=== PATIENT | male | born 1990 | race Caucasian/White ===

== ENCOUNTER 2022-01-25 19:13 | Observation (INO) ==
[2022-01-25] MEDS ORDERED: PIPERACILLIN/TAZOBACTAM 4.5 GM/120 ML BAG IV ONE (19:48)
[2022-01-25 19:52] LABS: Basophils # (auto) 0.07 K/uL (0-0.2); Basophils % (auto) 0.4 %; Eosinophils # (auto) 0.45 K/uL (0-0.50); Eosinophils % (auto) 2.8 %; Hematocrit (blood only) 48.2 % (40.1-51.0); Hemoglobin 16.1 g/dl (14.0-18.0); Immature Granulocytes # (auto) 0.06 K/uL (0.00-0.02); Immature Granulocytes % (auto) 0.4 %; Lymphocytes # (auto) 0.87 K/uL (1.2-3.4); Lymphocytes % (auto) 5.4 %; Mean Corpuscular Hemoglobin 29.1 pg (25.0-34.0); Mean Corpuscular Hgb Conc 33.4 g/dL (32.0-36.0); Mean Platelet Volume 9.9 fL (9.4-12.4); Neutrophils # (auto) 13.85 K/uL (1.4-6.5); Platelet Count 217 K/uL (130-400); RDW Coefficient of Variation 11.9 % (11.5-14.5); RDW Standard Deviation 37.9 fL (36.4-46.3); Red Blood Count 5.54 M/uL (4.63-6.08)
[2022-01-25] MEDS ORDERED: PIPERACILLIN/TAZOBACTAM 4.5 GM/120ML D5W IV ONE (19:57)
[2022-01-25] MEDS ORDERED: PANTOprazole 80 MG in DEXTROSE 5% 100 ML IV STA (19:57)
[2022-01-25 20:05] LABS: Partial Thromboplastin Ratio 0.9; Prothrombin Time 10.9 Seconds (9.0-12.0)
[2022-01-25 20:19] LABS: Albumin Globulin Ratio 1.8 (0.9-2); Albumin Level 4.8 gm/dl (3.4-5.0); BUN Creatinine Ratio 8.7 (10-20); Bilirubin,Total 1.5 mg/dl (0.2-1.0); Calcium 9.8 mg/dl (8.5-10.1); Creatinine Clr Calc Pharmacy 124.5 ml/min; Est GFR (African American) 111.9 ml/min; Est GFR (Non-African American) 96.6 ml/min; Globulin 2.7 gm/dl (2.5-4.0); Potassium 3.8 mmol/L (3.5-5.1); Total Protein 7.5 gm/dl (6.0-8.3); Troponin I High Sensitivity 4.4 pg/ml (0-20)
[2022-01-25 20:21] LABS: iSTAT Ionized Calcium 1.17 mmol/l (1.12-1.32); iSTAT Potassium 3.7 mmol/L (3.3-5.0)
[2022-01-25] MEDS ORDERED: OPTIRAY 300 500mL IV ONE (20:22)
[2022-01-25] MEDS ORDERED: SODIUM CHLORIDE 0.9% 1000ML 1,000 ML IV SCH (20:30)
--- NOTE | 2022-01-25 20:37 | CT Scan Report ---
CHEST CT WITH CONTRAST CT DOSE: 323.74 mGy.cm HISTORY: Acute chest and abdominal pain with fever w/oral contrast ro esophogeal perf TECHNIQUE: Multiaxial CT images of the chest were performed following the IV administration of 94 cc of Optiray. Oral contrast was also utilized. A dose lowering technique was utilized adhering to the principles of ALARA. COMPARISON: Chest CT 04/20/2012 FINDINGS: Unremarkable thyroid. Residual thymic tissue of the anterior mediastinum. No pathologically enlarged lymph nodes. The heart is normal in size without pericardial effusion. Unremarkable thoraci c aorta and pulmonary artery. No pneumothorax, pleural effusion or overt pulmonary edema. Patchy nodu lar groundglass and consolidative opacities noted within left lung, predominantly within the left juany g base. Subtle right upper lobe opacities include a 7 mm groundglass nodule of the right upper lobe 1 33. The central airways are patent. Study is degraded by respiratory motion artifact. No pneumatosis or pneumoperitoneum. Oral contrast is noted throughout the esophagus without evidence of extravasation or perforation. No acute process of the imaged upper abdomen. Unremarkable soft tiss ues. No acute fracture. IMPRESSION: 1. Patchy nodular groundglass and consolidative opacities, most pronounced within the left lung base are suggestive of pneumonia. 2. No evidence of esophageal perforation. 3. No pleural effusion. ACT 112: Negative or not required by law. Electronically signed by: Eddie Mckoy M.D. 01/25/2022 8:35 PM
--- NOTE | 2022-01-25 20:55 | Consultation ---
Date of Consultation January 25, 2022 History of Present Illness Reason for Consultation: chest pain after dilation History of Present Illness 31 yo M with eosinophilic esophagitis with narrow caliber esophagus s/p dilation to 12 mm earlier this afternoon. Pt with several deep rents in esophagus post dilation. He was sent to ER with complaint of CP and temp of 100.2 at home. At present, he reports CP with dry swallow. PE: Appears comfortable, does not appear to be in distress. I ask him to dry swallow several times, and he winces slightly with this. HEENT: OC clear, no crepitus Resp: CTA to oh Labs reviewed: WBC 16, o.w normal labs CT reviewed with radiologist, mild aspiration, no extrav of oral contrast, no mediastinal fluid. Esophagus appears unremarkable. A/P: CP post dilation in pt with EE - Cont PPI gtt overnight, cont zosyn overnight. - Plan for esophagram tomorrow with gastrograffin contrast. If again no extra of contrast, ok for d/c home tomorrow with PPI gtt, full iquids and Augmentin for aspiration. Allergies Allergy/AdvReac Type Severity Reaction Status Date / Time No Known Allergies Allergy Mild Verified 11/27/14 13:31 Home Medications Medication Instructions Recorded Confirmed Type OMEPRAZOLE (PRILOSEC) 20 mg PO DAILY #0 caps 11/27/14 History Patient History Social History Smoking Status: Never smoker Preferred Language: Romanian Feels Safe at Home: Yes Results & Data ([facility]) Vital Signs (Past 12 Hours) Vital Signs Temp Pulse Resp BP Pulse Ox O2 Del Method 01/25/22 19:51 95 Room Air 01/25/22 19:22 37.6 C H 95 H 18 131/77 96
[2022-01-25] MEDS ORDERED: HYDROmorphone INJ 0.5 MG/0.5 ML SYR IV STA (22:33)
[2022-01-25] MEDS ORDERED: HYDROmorphone INJ 0.5 MG/0.5 ML SYR IV PRN (23:49)
[2022-01-25] MEDS ORDERED: NITROGLYCERIN SL 0.4 MG/TAB TAB SL PRN (23:49)
[2022-01-25] MEDS ORDERED: ONDANSETRON INJ 2 MG/ML 2 ML VIAL IV PRN (23:49)
[2022-01-25] MEDS ORDERED: ACETAMINOPHEN 325 MG TAB PO PRN (23:49)
--- NOTE | 2022-01-26 00:56 | History and Physical Report ---
DATE OF ADMISSION: 01/25/2022. CHIEF COMPLAINT: Chest pain post esophageal dilatation. HISTORY OF PRESENT ILLNESS: This is a 31-year-old male with past medical history significant for intestinal disaccharidase deficiency, dysphagia, eosinophilic esophagitis, GERD. He is status post EGD and found to have narrow- caliber esophagus, status post dilatation to 12 mm earlier this afternoon. The patient seems to have several deep rents in the esophagus post-dilatation as per the GI notes. He was discharged home.Saying after going home and after waking up from sleep, he had a temperature of 100 degrees and also having chest pain and could not able to swallow, so he came back. He had imaging studies done. CT chest shows aspiration pneumonitis and also some esophagitis and no evidence of esophageal perforation. No pleural effusion. GI saw the patient and ordered to observe overnight, treat with Protonix drip and Zosyn, and plan for esophagram with Gastrografin contrast in the a.m. Currently, the patient complains of chest pain, a lot of pain all through his esophagus and is requesting pain medications. Denies any nausea or vomiting. No shortness of breath, no cough, no headache, no blurred visions, no earache, no runny nose, no sore throat. Some abdominal discomfort. Normal bowel and bladder movements. Resting comfortably, hemodynamically stable. ALLERGIES: No known drug allergies. PAST MEDICAL HISTORY: As mentioned above. PAST SURGICAL HISTORY: Circumcision, EGDs multiple, EGD with biopsies, repair of right elbow fracture. MEDICATIONS: Omeprazole 20 mg daily. FAMILY HISTORY: Significant for cousin with GERD, mother has kidney stones. SOCIAL HISTORY: Single, former smoker. Alcohol on the weekends. No drug use. REVIEW OF SYSTEMS: As per HPI. Rest of the review of systems is negative. PHYSICAL EXAMINATION: GENERAL: The patient is of moderate build, not in acute distress. VITAL SIGNS: Temperature 37.6, pulse 95, respiratory rate 18, blood pressure 131/77, oxygen 94% on room air. HEENT: Pupils equal, round and reactive to light. Oral mucosa moist. NECK: No JVD, no neck masses. CARDIOVASCULAR: S1 and S2 heard. Regular rate and rhythm. No murmur, no gallop. RESPIRATORY: Normal AP diameter. No accessory muscle use. No wheezing, no crackles. ABDOMEN: Soft, bowel sounds present, nontender, no distention. CENTRAL NERVOUS SYSTEM: Cranial nerves II-XII grossly intact, nonfocal. EXTREMITIES: No edema, no erythema. LABORATORY DATA: WBC 16, hemoglobin 16.1, hematocrit 48.2, platelets 217. PT 10.9, INR 1, APTT 25. Sodium 139, potassium 3.8, chloride 102, CO2 29, BUN 9, creatinine 1.04, serum glucose 69, calcium 9.8, total bilirubin 1.5, AST 18, ALT 18, alkaline phosphatase 71. Troponin I high sensitivity 4.4. Chest CT: Patchy nodular ground-glass and consolidative opacities, most prominent in the left lung base suggestive of pneumonia. No evidence of esophageal perforation. No pleural effusion. EKG: Sinus rhythm and sinus arrhythmia with short CA at a rate of 85. ASSESSMENT AND PLAN: This is a 31-year-old male who presents with chest pain post esophageal dilatation. 1. Eosinophilic esophagitis, status post EGD and narrow caliber esophagus, status post dilation up to 12 mm. Complaints of chest pain and some fever concerning aspiration pneumonitis. No perforation. Plan for PPI drip overnight, IV zosyn.Esophagram tomorrow with Gastrografin contrast. We will keep him n.p.o. Gastrointestinal consulted. Pain control, antiemetics, IV fluids. 2. Aspiration pneumonitis. Starting him on Zosyn, plan to discharge on Augmentin. 3. Deep venous thrombosis prophylaxis: Sequential compression devices. DISPOSITION: Admit to [facility]. PT/OT prior to discharge. Social service to help with discharge planning. Job ID: [id number] [facility]
--- NOTE | 2022-01-26 00:59 | Emergency Department Note ---
History of Present Illness General Chief complaint: Chest Pain Stated complaint: CHEST PAIN, FEVER Time Seen by Provider: 01/25/22 19:50 History of Present Illness Provider complaint: Chest pain Onset (ago): day(s) 1 Location: chest Radiation: non-radiation Severity: moderate Pain Consistency: + constant Maximum Pain Intensity: 5 Current Pain Intensity: 5 Quality: + burning and + stabbing Relieved By: + none Exacerbated By: + none Associated symptoms: + chest pain; no cough, no fever/chills, no headaches, no malaise, no nausea/vomiting or no shortness of breath 31-year-old male presents to the emergency department with chest pain. Patient had an endoscopy done today by Dr. Nelson and after procedure he was sharp ving chest pain and fevers. He called Dr. Nelson who referred him to the emergency department. Dr. Nelson is at the bedside and is recommending we perform a CT scan to rule out perforation. Home Medications Medication Instructions Recorded Confirmed Type OMEPRAZOLE (PRILOSEC) 20 mg PO DAILY #0 caps 11/27/14 History Allergies Allergy/AdvReac Type Severity Reaction Status Date / Time No Known Allergies Allergy Mild Verified 11/27/14 13:31 Past Med/Surg History Medical History Eosinophilic esophagitis No pertinent family history Surgical History No pertinent past surgical history Social History Smoking Status: Never smoker Second Hand Exposure: Yes (mom occasionally); Do You Dip or Chew Tobacco: No; Tobacco Cessation Education Requested by Patient: No Hx Alcohol Use: Yes Alcohol type: beer and hard liquor Hx Substance Use: No Preferred Language: Malian Communication Ability: Effective 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 Beliefs That Will Affect Care: None Current Living Situation: Alone Other Information That Helps Us Care for You: No Feels Safe at Home: Yes Safety Concerns: Feels Safe At This Time Assistive Devices: Glasses Review of Systems A total of 10 systems reviewed and were otherwise negative Physical Exam Vital Signs Vital Signs - 24 hr 01/25/22 19:22 01/25/22 19:51 01/25/22 21:14 Temperature 37.6 C H Temperature Source Temporal Artery Scan Pulse Rate 95 H Pulse Rate [Apical] 72 Respiratory Rate 18 20 Respiratory Effort / Characteristics Non-Labored Spontaneous Respiratory Depth Normal Respiratory Pattern Regular Blood Pressure 131/77 Blood Pressure [Right Arm] 128/79 Blood Pressure Mean 95 Blood Pressure Mean [Right Arm] 95 Blood Pressure Position [Right Arm] Sitting Pulse Oximetry 96 95 95 Oxygen Delivery Method Room Air Room Air Sepsis Recent Fever Within 48 Hours Yes Sepsis New/Unexplained Change in Mental Status No Sepsis Action Taken by Nursing No Action Required 01/25/22 21:14 Temperature Temperature Source Pulse Rate Pulse Rate [Apical] Respiratory Rate Respiratory Effort / Characteristics Respiratory Depth Respiratory Pattern Blood Pressure Blood Pressure [Right Arm] Blood Pressure Mean Blood Pressure Mean [Right Arm] Blood Pressure Position [Right Arm] Pulse Oximetry 97 Oxygen Delivery Method Room Air Sepsis Recent Fever Within 48 Hours Sepsis New/Unexplained Change in Mental Status Sepsis Action Taken by Nursing Physical Exam GENERAL: He is oriented to person, place, and time. He appears well-developed and well-nourished. He does not appear distressed. HENT: Exam performed. - Head: Normocephalic and atraumatic. - Right Ear: External ear normal. No mastoid tenderness. - Left Ear: External ear normal. No mastoid tenderness. - Mouth/Throat: The oropharynx is clear and moist. No trismus in the jaw. No dental abscesses or uvula swelling. No oropharyngeal exudate or tonsillar abscesses. EYES: Conjunctivae and EOM are normal. Pupils are equal, round, and reactive to light. Right eye exhibits no discharge. Left eye exhibits no discharge. No scleral icterus. NECK: Normal range of motion. Neck supple. No JVD present. No spinous process tenderness present. No carotid bruit present. No rigidity. No tracheal deviation and normal range of motion present. No Brudzinski's sign and no Kernig's sign noted. CV: Normal rate, regular rhythm, normal heart sounds and intact distal pulses. There is no peripheral edema. Palpable radial pulses bue. PULM/CHEST: Effort normal and breath sounds normal. No respiratory distress. No stridor. He has no wheezes. He has no rales. - Chest Wall: He exhibits no tenderness. ABD: The abdomen is soft. Bowel sounds are normal. He has no distension. No mass is present. There is no tenderness. There is no rebound, no guarding, no Shannon's sign and no tenderness at McBurney's point. Rovsig negative. MUSC/SKEL: Normal range of motion. There is no peripheral edema, tenderness or deformity. LYMPH: No cervical adenopathy. NEURO: He is alert and oriented to person, place, and time. He has normal strength. No cranial nerve deficit or sensory deficit. Coordination and gait normal. GCS eye subscore is 4. GCS verbal subscore is 5. GCS motor subscore is 6. Cerebellar tests wnl. SKIN: Skin is warm and dry. He is not diaphoretic. PSYCH: He has a normal mood and affect. Behavior is normal. Judgment and thought content normal. Course Course 1950: The patient was evaluated in room B8. A complete history and physical exam was performed Cardiac monitoring: An order was placed for continuous cardiac monitoring. The monitor shows a rate of 80 with sinus rhythm Administered Medications Discontinued Medications Piperacillin Sod/Tazobactam Sod (Zosyn) 4.5 gm in 120 mls @ 240 mls/hr IV NOW ONE Stop: 01/25/22 20:17 Last Infusion: 01/25/22 20:32 Dose: 0 mls/hr Documented By: Admin: 01/25/22 19:59 Dose: 240 mls/hr Documented By: JESS Pantoprazole Sodium 80 mg/ (Dextrose) 100 mls @ 400 mls/hr IV ONE STA Stop: 01/25/22 20:11 Last Infusion: 01/25/22 21:00 Dose: 0 mls/hr Documented By: Admin: 01/25/22 20:37 Dose: 400 mls/hr Documented By: JESS Sodium Chloride (Nss 1000ml) 1,000 mls @ 150 mls/hr IV .Q6H40M AKIALH Stop: 02/24/22 20:29 Last Infusion: 01/26/22 00:11 Dose: 0 mls/hr Documented By: Admin: 01/25/22 21:09 Dose: 150 mls/hr Documented By: JESS Ioversol (Optiray 300 500ml) 94 ml IV ONCE ONE Stop: 01/25/22 20:23 Last Admin: 01/25/22 20:23 Dose: 94 ml Documented By: ANKIT Piperacillin Sod/Tazobactam Sod (Piperacillin/Tazobactam 4.5 Gm/120ml D5w) Confirm Administered Dose 4.5 gm IV .STK-MED ONE Stop: 01/25/22 19:58 Last Admin: 01/25/22 20:12 Dose: Not Given Documented By: JESS Medical Decision Making Laboratory Data Result diagrams: 01/25/22 19:30 01/25/22 19:30 Lab Results 01/25/22 01/25/22 01/25/22 Range/Units 19:30 19:30 19:30 WBC 16.10 H (4.8-10.8) K/ul RBC 5.54 (4.63-6.08) M/uL Hgb 16.1 (14.0-18.0) g/dl POC Hgb (14.0-18.0) g/dl Hct 48.2 (40.1-51.0) % POC Hct (42-52) % MCV 87.0 (80.0-100.0) fL MCH 29.1 (25.0-34.0) pg MCHC 33.4 (32.0-36.0) g/dL RDW Std Deviation 37.9 (36.4-46.3) fL RDW Coeff of Nikolay 11.9 (11.5-14.5) % Plt Count 217 (130-400) K/uL MPV 9.9 (9.4-12.4) fL Immature Gran % (Auto) 0.4 % Neut % (Auto) 86.0 % Lymph % (Auto) 5.4 % Bay % (Auto) 5.0 % Eos % (Auto) 2.8 % Baso % (Auto) 0.4 % Neut # (Auto) 13.85 H (1.4-6.5) K/uL Lymph # (Auto) 0.87 L (1.2-3.4) K/uL Bay # (Auto) 0.80 (0.24-0.82) K/uL Eos # (Auto) 0.45 (0-0.50) K/uL Baso # (Auto) 0.07 (0-0.2) K/uL Immature Gran # (Auto) 0.06 H (0.00-0.02) K/uL PT 10.9 (9.0-12.0) Seconds INR 1.0 (0.9-1.1) APTT 25.0 (21.0-31.0) Seconds PTT Ratio 0.9 POC Sodium (135-144) mmol/L Sodium 139 (136-145) mmol/L POC Potassium (3.3-5.0) mmol/L Potassium 3.8 (3.5-5.1) mmol/L POC Chloride (101-112) mmol/L Chloride 102 (98-107) mmol/L Carbon Dioxide 29 (21-32) mmol/L POC Total CO2 (24-31) mmol/L Anion Gap 8 (3-11) POC Anion Gap (16-25) mmol/L POC BUN (7-18) mg/dl BUN 9 (6-23) mg/dl Creatinine 1.04 (0.6-1.4) mg/dl POC Creatinine (0.6-1.3) mg/dl Est Cr Clr Drug Dosing 124.5 ml/min Est GFR ( Amer) 111.9 ml/min Est GFR (Non-Af Amer) 96.6 ml/min BUN/Creatinine Ratio 8.7 L (10-20) Glucose 69 L (70-99(Fasting)) mg/dl POC Glucose (other) (70-99) mg/dl Calcium 9.8 (8.5-10.1) mg/dl POC Ioniz Calcium Krunal (1.12-1.32) mmol/l Total Bilirubin 1.5 H (0.2-1.0) mg/dl AST 18 (13-39) U/L ALT 18 (7-52) U/L Alkaline Phosphatase 71 (34-104) U/L Troponin I High Sens 4.4 (0-20) pg/ml Total Protein 7.5 (6.0-8.3) gm/dl Albumin 4.8 (3.4-5.0) gm/dl Globulin 2.7 (2.5-4.0) gm/dl Albumin/Globulin Ratio 1.8 (0.9-2) SARS-CoV-2, RNA, NAAT (NEGATIVE) 01/25/22 01/25/22 Range/Units 20:08 21:40 WBC (4.8-10.8) K/ul RBC (4.63-6.08) M/uL Hgb (14.0-18.0) g/dl POC Hgb 15.0 (14.0-18.0) g/dl Hct (40.1-51.0) % POC Hct 44 (42-52) % MCV (80.0-100.0) fL MCH (25.0-34.0) pg MCHC (32.0-36.0) g/dL RDW Std Deviation (36.4-46.3) fL RDW Coeff of Nikolay (11.5-14.5) % Plt Count (130-400) K/uL MPV (9.4-12.4) fL Immature Gran % (Auto) % Neut % (Auto) % Lymph % (Auto) % Bay % (Auto) % Eos % (Auto) % Baso % (Auto) % Neut # (Auto) (1.4-6.5) K/uL Lymph # (Auto) (1.2-3.4) K/uL Bay # (Auto) (0.24-0.82) K/uL Eos # (Auto) (0-0.50) K/uL Baso # (Auto) (0-0.2) K/uL Immature Gran # (Auto) (0.00-0.02) K/uL PT (9.0-12.0) Seconds INR (0.9-1.1) APTT (21.0-31.0) Seconds PTT Ratio POC Sodium 140 (135-144) mmol/L Sodium (136-145) mmol/L POC Potassium 3.7 (3.3-5.0) mmol/L Potassium (3.5-5.1) mmol/L POC Chloride 101 (101-112) mmol/L Chloride (98-107) mmol/L Carbon Dioxide (21-32) mmol/L POC Total CO2 26 (24-31) mmol/L Anion Gap (3-11) POC Anion Gap 17.0 (16-25) mmol/L POC BUN 8 (7-18) mg/dl BUN (6-23) mg/dl Creatinine (0.6-1.4) mg/dl POC Creatinine 1.0 (0.6-1.3) mg/dl Est Cr Clr Drug Dosing ml/min Est GFR ( Amer) ml/min Est GFR (Non-Af Amer) ml/min BUN/Creatinine Ratio (10-20) Glucose (70-99(Fasting)) mg/dl POC Glucose (other) 73 (70-99) mg/dl Calcium (8.5-10.1) mg/dl POC Ioniz Calcium Krunal 1.17 (1.12-1.32) mmol/l Total Bilirubin (0.2-1.0) mg/dl AST (13-39) U/L ALT (7-52) U/L Alkaline Phosphatase (34-104) U/L Troponin I High Sens (0-20) pg/ml Total Protein (6.0-8.3) gm/dl Albumin (3.4-5.0) gm/dl Globulin (2.5-4.0) gm/dl Albumin/Globulin Ratio (0.9-2) SARS-CoV-2, RNA, NAAT NEGATIVE (NEGATIVE) Imaging Data Radiologist's Impression: Chest CT 01/25/22 19:[address] WITH CONTRAST CT DOSE: 323.74 mGy.cm HISTORY: Acute chest and abdominal pain with fever w/oral contrast ro esophogeal perf TECHNIQUE: Multiaxial CT images of the chest were performed following the IV administration of 94 cc of Optiray. Oral contrast was also utilized. A dose lowering technique was utilized adhering to the principles of ALARA. COMPARISON: Chest CT 04/20/2012 FINDINGS: Unremarkable thyroid. Residual thymic tissue of the anterior mediastinum. No pathologically enlarged lymph nodes. The heart is normal in size without pericardial effusion. Unremarkable thoracic aorta and pulmonary artery. No pneumothorax, pleural effusion or overt pulmonary edema. Patchy nodular groundglass and consolidative opacities noted within left lung, predominantly within the left lung base. Subtle right upper lobe opacities include a 7 mm groundglass nodule of the right upper lobe 133. The central airways are patent. Study is degraded by respiratory motion artifact. No pneumatosis or pneumoperitoneum. Oral contrast is noted throughout the esophagus without evidence of extravasation or perforation. No acute process of the imaged upper abdomen. Unremarkable soft tissues. No acute fracture. IMPRESSION: 1. Patchy nodular groundglass and consolidative opacities, most pronounced within the left lung base are suggestive of pneumonia. 2. No evidence of esophageal perforation. 3. No pleural effusion. ACT 112: Negative or not required by law. Electronically signed by: Eddie Mckoy M.D. 01/25/2022 8:35 PM ECG Data Indication: + chest pain Rate (beats per minute): 85 Rhythm: + normal sinus ECG Intervals/blocks: + Normal QRS, + Normal MO and + Normal QT-c ECG ST segments: + Normal ST segments MDM Narrative Vital signs stable. Leukocytosis 16. CT showed no perforation but does show aspiration pneumonia. Dr. Nelson recommends admission for observation and Dr. Edwards [facility] [address] hospitalist will be notified. Impression & Plan Aspiration pneumonia Discharge Plan Visit Data Chief Complaint: Chest Pain Stated Complaint: CHEST PAIN, FEVER ED Provider: Eric Whitley Discharge Problem: Aspiration pneumonia Patient Disposition: Admitted As Inpatient Discharge Instructions Interventions: ED Discharge Assessment Last Done: 01/25/22 23:17
[2022-01-26] MEDS ORDERED: ACETAMINOPHEN 1000 MG/100 ML IV IV PRN (01:03)
[2022-01-26] MEDS ORDERED: HYDROmorphone INJ 0.5 MG/0.5 ML SYR IV PRN (01:04)
[2022-01-26] MEDS ORDERED: ACETAMINOPHEN 1,000 MG/100 ML VIAL IV PRN (01:15)
[2022-01-26] MEDS: D5W AND 1/2NSS 1,000 ML IV SCH ×2 (01:32→07:35)
[2022-01-26] MEDS: PIPERACILLIN/TAZOBACTAM 3.375 GM in DEXTROSE 5% 100 ML IV SCH ×2 (01:38→07:35)
[2022-01-26] MEDS: PANTOprazole 40 MG in DEXTROSE 5% 100 ML IV SCH ×3 (01:48→10:14)
[2022-01-26 08:18] LABS: Basophils # (auto) 0.07 K/uL (0-0.2); Basophils % (auto) 0.4 %; Eosinophils # (auto) 0.41 K/uL (0-0.50); Eosinophils % (auto) 2.5 %; Hematocrit (blood only) 42.2 % (40.1-51.0); Hemoglobin 14.5 g/dl (14.0-18.0); Immature Granulocytes # (auto) 0.06 K/uL (0.00-0.02); Immature Granulocytes % (auto) 0.4 %; Lymphocytes # (auto) 1.69 K/uL (1.2-3.4); Lymphocytes % (auto) 10.4 %; Mean Corpuscular Hemoglobin 29.7 pg (25.0-34.0); Mean Corpuscular Hgb Conc 34.4 g/dL (32.0-36.0); Mean Corpuscular Volume 86.5 fL (80.0-100.0); Mean Platelet Volume 9.8 fL (9.4-12.4); Monocytes # (auto) 1.04 K/uL (0.24-0.82); Monocytes % (auto) 6.4 %; Neutrophils # (auto) 13.05 K/uL (1.4-6.5); Neutrophils % (auto) 79.9 %; Platelet Count 199 K/uL (130-400); RDW Standard Deviation 38.4 fL (36.4-46.3); Red Blood Count 4.88 M/uL (4.63-6.08); White Blood Count 16.32 K/ul (4.8-10.8)
[2022-01-26 08:42] LABS: Creatinine Clr Calc Pharmacy 110.9 ml/min; Est GFR (African American) 99.1 ml/min; Est GFR (Non-African American) 85.5 ml/min; Magnesium 2.2 mg/dl (1.7-2.4); Potassium 3.8 mmol/L (3.5-5.1)
[2022-01-26 08:45] LABS: Troponin I High Sensitivity 3.4 pg/ml (0-20)
--- NOTE | 2022-01-26 08:50 | Gastroenterology Progress Note ---
Date of Service January 26, 2022 Assessment & Plan (1) Aspiration pneumonia: Plan: Pt is a 31 yo male w hx of Eosinophilic esophagitis s/p EGD w dilation yesterday, then developed fever, chest pain. CT chest concerning for aspiration pneumonia, esophagitis but no signs of esophageal perforation. Clinically he is improved today. - PPI gtt - NPO - Esophagram study today - Zosyn IV, then Augmentin PO for pneumonia treatment in OP setting - If no signs of perforation or other concerning findings on esophagram, will start soft diet and likely DC home today Admission and Anticipated Discharge Date Admission Date: January 25, 2022 Supervising Physician Co-Signing Physician Notes Saw and evaluated the patient this morning. He notes that his chest discomfort is much improved today. My partner did see him yesterday evening and asked that we make arrangements for an upper GI series to ensure that there is no evidence of esophageal perforation status post his dilation yesterday. If the upper GI series is negative the patient can be discharged on a mechanical soft diet for 3 to 4 days oral antibiotic for a suspected aspiration. Subjective Patient reports that he feels better, denies any fevers overnight, chest pain, abdominal pain, nausea or vomiting. Review of Systems Review of Systems: All systems reviewed & are unremarkable except as noted in HPI & below Physical Exam Constitutional: WD/WN, vitals as above well groomed, cooperative and comfortable Eyes: PERRL, conjunctivae normal, anicteric sclerae ENMT: external ear and nose normal, oropharynx normal Respiratory: normal respiratory effort, lungs clear to auscultation Cardiovascular: RRR, no murmur, no edema Gastrointestinal (Abdomen): normal bowel sounds, soft, nontender, no hepatospl enomegaly Skin: no rashes, warm and dry no jaundice Psychiatric: A+Ox3, euthymic affect Lymphatic: no lymphedema Results & Data ([facility]) Vital Signs (Past 12 Hours) Vital Signs Temp Pulse Pulse Pulse Resp BP Pulse Ox 01/26/22 08:07 36.6 C 78 18 112/66 99 01/26/22 07:45 01/26/22 07:12 52 L 01/26/22 04:01 36.9 C 68 18 121/65 96 01/26/22 00:36 78 01/26/22 00:51 01/26/22 00:31 36.9 C 77 16 137/76 95 01/25/22 23:58 36.9 C 77 16 137/76 95 01/25/22 23:57 01/25/22 23:30 36.9 C 77 16 137/76 95 01/25/22 21:14 97 01/25/22 21:14 72 20 128/79 95 Pulse Ox O2 Del Method O2 Del Method 01/26/22 08:07 01/26/22 07:45 Room Air 01/26/22 07:12 01/26/22 04:01 Room Air 01/26/22 00:36 01/26/22 00:51 Room Air 01/26/22 00:31 Room Air 01/25/22 23:58 Room Air 01/25/22 23:57 95 Room Air 01/25/22 23:30 Room Air 01/25/22 21:14 Room Air 01/25/22 21:14 Room Air (1) Aspiration pneumonia Aspiration pneumonia type: unspecified Laterality: unspecified laterality Lung location: unspecified part of lung Qualified Code(s): J69.0 - Pneumonitis due to inhalation of food and vomit
--- NOTE | 2022-01-26 09:19 | Electrocardiogram Report ---
Test Reason : Blood Pressure : / mmHG Vent. Rate : 085 BPM Atrial Rate : 085 BPM P-R Int : 092 ms QRS Dur : 094 ms QT Int : 348 ms P-R-T Axes : 025 067 062 degrees QTc Int : 414 ms Sinus rhythm with sinus arrhythmia with short NH Otherwise normal ECG No previous ECGs available Confirmed by Sreekanth Clifford ([id number]) on 01/26/2022 9:19:20 AM Referred By: REFERRED SELF Confirmed By:Sreekanth Clifford
--- NOTE | 2022-01-26 09:40 | Electrocardiogram Report ---
Test Reason : Blood Pressure : / mmHG Vent. Rate : 058 BPM Atrial Rate : 058 BPM P-R Int : 122 ms QRS Dur : 110 ms QT Int : 424 ms P-R-T Axes : 040 074 058 degrees QTc Int : 416 ms Sinus bradycardia with sinus arrhythmia Otherwise normal ECG When compared with ECG of 25-JAN-2022 19:26, [place] interval has increased Confirmed by Sreekanth Clifford ([id number]) on 01/26/2022 9:40:14 AM Referred By: REFERRED SELF Confirmed By:Sreekanth Clifford
--- NOTE | 2022-01-26 10:29 | Fluoroscopy Report ---
FL barium swallow CLINICAL HISTORY: pain after esophageal dilation COMPARISON STUDY: Chest CT 01/25/2022. Barium swallow 04/21/2012 FINDINGS: Total fluoroscopy time was 0.3 minutes. 9 fluoroscopic spot images of the chest were submit bruna. No pneumomediastinum identified on website project manager images. The patient swallowed water-soluble contrast wi thout difficulty. Esophagus is normal in course, caliber, and motility. No extra luminal contrast to suggest esophageal perforation. No evidence for obstruction. IMPRESSION: No extraluminal contrast to suggest an esophageal perforation. ACT 112: Negative or not required by law. Electronically signed by: Medardo Leon M.D. 01/26/2022 10:28 AM
--- NOTE | 2022-01-26 13:17 | Discharge Summary ---
Date of Service January 26, 2022 Admission HPI Per Admitting Provider This is a 31-year-old male with past medical history significant for intestinal disaccharidase deficiency, dysphagia, eosinophilic esophagitis, GERD. He is status post EGD and found to have narrow-caliber esophagus, status post dilatation to 12 mm earlier this afternoon. The patient seems to have several deep rents in the esophagus post-dilatation as per the GI notes. He was discharged home.Saying after going home and after waking up from sleep, he had a temperature of 100 degrees and also having chest pain and could not able to swallow, so he came back. He had imaging studies done. CT chest shows aspiration pneumonitis and also some esophagitis and no evidence of esophageal perforation. No pleural effusion. GI saw the patient and ordered to observe overnight, treat with Protonix drip and Zosyn, and plan for esophagram with Gastrografin contrast in the a.m. Currently, the patient complains of chest pain, a lot of pain all through his esophagus and is requesting pain medications. Denies any nausea or vomiting. No shortness of breath, no cough, no headache, no blurred visions, no earache, no runny nose, no sore throat. Some abdominal discomfort. Normal bowel and bladder movements. Resting comfortably, hemodynamically stable. Admission Exam Per Admitting Provider GENERAL: The patient is of moderate build, not in acute distress. VITAL SIGNS: Temperature 37.6, pulse 95, respiratory rate 18, blood pressure 131/77, oxygen 94% on room air. HEENT: Pupils equal, round and reactive to light. Oral mucosa moist. NECK: No JVD, no neck masses. CARDIOVASCULAR: S1 and S2 heard. Regular rate and rhythm. No murmur, no gallop. RESPIRATORY: Normal AP diameter. No accessory muscle use. No wheezing, no crackles. ABDOMEN: Soft, bowel sounds present, nontender, no distention. CENTRAL NERVOUS SYSTEM: Cranial nerves II-XII grossly intact, nonfocal. EXTREMITIES: No edema, no erythema. Principal Diagnosis Aspiration pneumonia Discharge Exam General: Lying comfortably in bed, not in distress, on room air HEENT: EOMI, HARSHA, MMM Chest: no tenderness. Clear breath sounds bilaterally, no wheezes or crackles CVS: Regular rate and rhythm, normal heart sounds, no murmur Abdomen: Soft, non tender, not distended, normal bowel sounds Neuro: Awake, alert, oriented, conversing well, non focal Extremities: No cyanosis, clubbing or edema Discharge Data Allergies Allergy/AdvReac Type Severity Reaction Status Date / Time No Known Allergies Allergy Mild Verified 11/27/14 13:31 Consultations 01/25/22 20:57 ED Decision to Admit Stat 01/25/22 23:49 Consult Gastroenterology Routine Ordered Studies 01/25/22 19:55 CT chest diagnostic w con Stat 01/26/22 08:33 Esophogram [FL barium swallow] Routine Laboratory Results WBC 16.32 K/ul (4.8-10.8) H 01/26/22 07:52 RBC 4.88 M/uL (4.63-6.08) 01/26/22 07:52 Hgb 14.5 g/dl (14.0-18.0) 01/26/22 07:52 POC Hgb 15.0 g/dl (14.0-18.0) 01/25/22 20:08 Hct 42.2 % (40.1-51.0) 01/26/22 07:52 POC Hct 44 % (42-52) 01/25/22 20:08 MCV 86.5 fL (80.0-100.0) 01/26/22 07:52 MCH 29.7 pg (25.0-34.0) 01/26/22 07:52 MCHC 34.4 g/dL (32.0-36.0) 01/26/22 07:52 RDW Std Deviation 38.4 fL (36.4-46.3) 01/26/22 07:52 RDW Coeff of Nikolay 12.0 % (11.5-14.5) 01/26/22 07:52 Plt Count 199 K/uL (130-400) 01/26/22 07:52 MPV 9.8 fL (9.4-12.4) 01/26/22 07:52 Immature Gran % (Auto) 0.4 % 01/26/22 07:52 Neut % (Auto) 79.9 % 01/26/22 07:52 Lymph % (Auto) 10.4 % 01/26/22 07:52 Roosevelt % (Auto) 6.4 % 01/26/22 07:52 Eos % (Auto) 2.5 % 01/26/22 07:52 Baso % (Auto) 0.4 % 01/26/22 07:52 Neut # (Auto) 13.05 K/uL (1.4-6.5) H 01/26/22 07:52 Lymph # (Auto) 1.69 K/uL (1.2-3.4) 01/26/22 07:52 Roosevelt # (Auto) 1.04 K/uL (0.24-0.82) H 01/26/22 07:52 Eos # (Auto) 0.41 K/uL (0-0.50) 01/26/22 07:52 Baso # (Auto) 0.07 K/uL (0-0.2) 01/26/22 07:52 Immature Gran # (Auto) 0.06 K/uL (0.00-0.02) H 01/26/22 07:52 PT 10.9 Seconds (9.0-12.0) 01/25/22 19:30 INR 1.0 (0.9-1.1) 01/25/22 19:30 APTT 25.0 Seconds (21.0-31.0) 01/25/22 19:30 PTT Ratio 0.9 01/25/22 19:30 POC Sodium 140 mmol/L (135-144) 01/25/22 20:08 Sodium 139 mmol/L (136-145) 01/26/22 07:52 POC Potassium 3.7 mmol/L (3.3-5.0) 01/25/22 20:08 Potassium 3.8 mmol/L (3.5-5.1) 01/26/22 07:52 POC Chloride 101 mmol/L (101-112) 01/25/22 20:08 Chloride 104 mmol/L (98-107) 01/26/22 07:52 Carbon Dioxide 30 mmol/L (21-32) 01/26/22 07:52 POC Total CO2 26 mmol/L (24-31) 01/25/22 20:08 Anion Gap 5 (3-11) 01/26/22 07:52 POC Anion Gap 17.0 mmol/L (16-25) 01/25/22 20:08 POC BUN 8 mg/dl (7-18) 01/25/22 20:08 BUN 8 mg/dl (6-23) 01/26/22 07:52 Creatinine 1.15 mg/dl (0.6-1.4) 01/26/22 07:52 POC Creatinine 1.0 mg/dl (0.6-1.3) 01/25/22 20:08 Est Cr Clr Drug Dosing 110.9 ml/min 01/26/22 07:52 Est GFR ( Amer) 99.1 ml/min 01/26/22 07:52 Est GFR (Non-Af Amer) 85.5 ml/min 01/26/22 07:52 BUN/Creatinine Ratio 7.0 (10-20) L 01/26/22 07:52 Glucose 93 mg/dl (70-99(Fasting)) 01/26/22 07:52 POC Glucose (other) 73 mg/dl (70-99) 01/25/22 20:08 Calcium 9.0 mg/dl (8.5-10.1) 01/26/22 07:52 POC Ioniz Calcium Krunal 1.17 mmol/l (1.12-1.32) 01/25/22 20:08 Magnesium 2.2 mg/dl (1.7-2.4) 01/26/22 07:52 Total Bilirubin 1.5 mg/dl (0.2-1.0) H 01/25/22 19:30 AST 18 U/L (13-39) 01/25/22 19:30 ALT 18 U/L (7-52) 01/25/22 19:30 Alkaline Phosphatase 71 U/L (34-104) 01/25/22 19:30 Troponin I High Sens 3.4 pg/ml (0-20) 01/26/22 07:52 Total Protein 7.5 gm/dl (6.0-8.3) 01/25/22 19:30 Albumin 4.8 gm/dl (3.4-5.0) 01/25/22 19:30 Globulin 2.7 gm/dl (2.5-4.0) 01/25/22 19:30 Albumin/Globulin Ratio 1.8 (0.9-2) 01/25/22 19:30 SARS-CoV-2, RNA, NAAT NEGATIVE (NEGATIVE) 01/25/22 21:[address] 01/25/22 19:[address] WITH CONTRAST CT DOSE: 323.74 mGy.cm HISTORY: Acute chest and abdominal pain with fever w/oral contrast ro esophogeal perf TECHNIQUE: Multiaxial CT images of the chest were performed following the IV administration of 94 cc of Optiray. Oral contrast was also utilized. A dose lowering technique was utilized adhering to the principles of ALARA. COMPARISON: Chest CT 04/20/2012 FINDINGS: Unremarkable thyroid. Residual thymic tissue of the anterior mediastinum. No pathologically enlarged lymph nodes. The heart is normal in size without pericardial effusion. Unremarkable thoracic aorta and pulmonary artery. No pneumothorax, pleural effusion or overt pulmonary edema. Patchy nodular groundglass and consolidative opacities noted within left lung, predominantly within the left lung base. Subtle right upper lobe opacities include a 7 mm groundglass nodule of the right upper lobe 133. The central airways are patent. Study is degraded by respiratory motion artifact. No pneumatosis or pneumoperitoneum. Oral contrast is noted throughout the esophagus without evidence of extravasation or perforation. No acute process of the imaged upper abdomen. Unremarkable soft tissues. No acute fracture. IMPRESSION: 1. Patchy nodular groundglass and consolidative opacities, most pronounced within the left lung base are suggestive of pneumonia. 2. No evidence of esophageal perforation. 3. No pleural effusion. ACT 112: Negative or not required by law. Electronically signed by: Eddie Mckoy M.D. 01/25/2022 8:35 PM Barium Swallow X-Ray 01/26/22 08:33 FL barium swallow CLINICAL HISTORY: pain after esophageal dilation COMPARISON STUDY: Chest CT 01/25/2022. Barium swallow 04/21/2012 FINDINGS: Total fluoroscopy time was 0.3 minutes. 9 fluoroscopic spot images of the chest were submitted. No pneumomediastinum identified on rheostat assembler images. The patient swallowed water-soluble contrast without difficulty. Esophagus is normal in course, caliber, and motility. No extra luminal contrast to suggest esophageal perforation. No evidence for obstruction. IMPRESSION: No extraluminal contrast to suggest an esophageal perforation. ACT 112: Negative or not required by law. Electronically signed by: Medardo Leon M.D. 01/26/2022 10:28 AM Hospital Course (1) Aspiration pneumonia: Plan 31 year old male with h/o eosinophilic esophagitis s/p EGD and esophageal dilation yesterday and discharged home presented to the ED with fever and chills. He was found to have aspiration PNA and started on zosyn and PPI. Seen by Gi and underwent barium swallow study which was negative for perforation. He tolerated soft diet without issues. He feels much better and is comfortable and stable for discharge home. Cleared by GI for discharge home with instructions for mechanical soft diet for 3-4 days. Discharging home on augmentin for 6 more days to complete antibiotic course. Total Time Total Time Spent Total Time Spent (In Minutes): 32 Discharge Plan Discharge Items Patient Disposition: Home - Self-Care Reason For Visit: CHEST PAIN Discharge Diagnosis: Aspiration pneumonia after EGD Activity: Resume your previous activity Non-emergency contact: Primary Care Provider Call non-emergency contact if: you have any medication questions, your symptoms worsen, your pain is concerning for you and you have a fever Follow-up/Referrals: Kenji Carballo MD [Primary Care Provider] - (Date & Time 02/02/2022 11:00 AM Provider Kenji Carballo MD Department General Internal Medicine [facility] ) Diet: Other - See Diet Comment Diet Texture: Mechanical soft (ground) Addtl Attending Provider Instructions: You likely had aspiration pneumonia after the endoscopy Your barium swallow study did not show any perforation or leakage. Continue mechanical soft diet for 3-4 days and then you can go back to your usual diet Continue augmentin twice daily for 6 more days for your pneumonia. Follow up with the family doctor. Follow up with the GI doctors. Pending Studies at Discharge: No Stand-Alone Forms: [facility] [employer], Smoking Cessation Medications and DC Order Prescriptions: New amoxicillin-pot clavulanate 875-125 mg tablet 1 tab PO BID Qty: 13 0RF ondansetron 4 mg tablet,disintegrating 4 mg PO TID PRN (Reason: nausea and vomiting) Qty: 10 0RF Continued OMEPRAZOLE (PRILOSEC) 20 MG CONTR REL CAP 20 mg PO DAILY Qty: 0 Discharge Orders: Discharge Order (Routine); Ordered 01/26/22 Ordered By: Shankar Leach Admission Data Admit Date/Time: 01/25/22 21:48 Attending Provider: Shankar Leach Admit Provider: Gama Edwards Primary Care Provider: Kenji Carballo Other Providers: Gama Edwards ; Nicola Nelson Other Interventions: Discharge Summary Assessment (RN) Last Done: 01/26/22 13:10
== END 2022-01-26 14:22 | disposition home or self-care (01) | DRG 205 ==
LOC: ED 19:13 → 2N 21:48 → INTOOBSV 21:48 → 2N 23:17